=== PATIENT | female | born 1960 | race Caucasian/White ===

== ENCOUNTER 2025-03-08 12:29 | Emergency (ER) | payer OTHER, SELFPAY ==
[2025-03-08 12:40] VITALS: BP 171/89
[2025-03-08 13:06] LABS: Hematocrit 40.2 % (37.0-47.0); Hemoglobin 14.5 g/dL (12.0-16.0); Mean Corp Hgb Conc. 36.1 g/dL (33.0-37.0); Mean Corpuscular Volume 88.2 fL (81.0-99.0); Nucleated Red Blood Cells % 0 %; Platelet Count 268 10^3/uL (130-400); Red Cell Dist. Width 12.1 % (11.5-14.5)
[2025-03-08 13:30] LABS: ALT (SGPT) 25 U/L (0-35); AST (SGOT) 29 U/L (14-36); Albumin 4.8 g/dl (3.5-5.0); Alkaline Phosphatase 84 U/L (38-126); Blood Urea Nitrogen 18 mg/dl (7-17); Calcium 9.6 mg/dl (8.4-10.2); Carbon Dioxide 27 mmol/L (22-30); Chloride 106 mmol/L (98-107); Glucose 117 mg/dl (70-99); Potassium 4.1 mmol/L (3.5-5.1); Sodium 140 mmol/L (135-145); Total Protein 7.6 g/dl (6.3-8.2); eGFR > 60.00
--- NOTE | 2025-03-08 15:50 | ED.GENMED ---
History of Present Illness
General
Chief Complaint: Visual Problem
Source: patient
Time Seen by Provider: 03/08/25 15:21
History of Present Illness
History of Present Illness:
This patient is a 64-year-old female with a history of cerebral aneurysm status post repair with coil and stent, noted incidentally on her workup for tinnitus, who presents emergency department with visual changes that started around 11 AM today.
She looked at her phone and noticed that she could not read it well. She describes a circular vision in her field that was associated with 'zigzags', and this became multicolored. She said on the left side of the [place] it was kind of blurry, but
not completely blacked out. No overt amaurosis. Symptoms are fully resolved within 10 minutes and then at noon she noted a moderate headache which persists. She denies fever, chills, numbness, tingling, focal weakness, change in speech, change in
balance, double vision, recent trauma. She denies recent chiropractor visit, neck extension, etc. Patient does wear glasses. She has never had a migraine before and states it does not run in the family. The headache that she is describing is not
sudden onset or worst of life. With these visual complaints she states that she close her left eye and still noted the abnormalities, close to her right eye and noted the abnormalities even more, and when closing both eyes appreciated the
abnormalities also.
Past History
Past History
ED Past Medical History: Other (Tinnitus, cerebral aneurysm, bigeminy, hypercholesterolemia)
ED Past Surgical History: Other (Ear surgery, tonsillectomy, hysterectomy, thyroid nodule)
Social History
Tobacco: Non-smoker
Alcohol: None
Drug: None
Personal:
Living: with family
Employment: Employed
Phy Exam
Physical Exam
Physical Exam:
GENERAL: Alert , in no apparent distress
EYE: pupils equal and reactive, EOMI, no nystagmus, no photophobia, visual hinton intact, funduscopic exam grossly normal
NECK: Supple, no significant adenopathy.
ENT: o/p clr, mmm.
CARDIAC: Regular rate and rhythm .
LUNGS: Clear breath sounds bilaterally, no acute respiratory distress, no wheezes/rales/rhonchi
ABDOMEN: Soft, without focal tenderness, no r/g, no cvat
NEUROLOGICAL: Alert and oriented, no focal neuro deficits, visual hinton intact, motor 5 out of 5, sensory intact, cranial nerves II through XII intact, [id number] normal, gait normal
SKIN: Warm and dry, skin intact.
MUSCULOSKELETAL: No edema, well perfused.
PSYCH: Normal and appropriate interaction.
Course
Orders/Labs/Results
Orders:
Orders
03/08/25 12:44
CT Head W/o Iv Contrast Urgent
Comment: aneurysm with stent and coils at [place] 2020
Reason For Exam: visual disturances for 10 minutes which resolved
03/08/25 12:52
Complete Blood Count/With Diff Urgent
Comprehensive Metabolic Panel Urgent
03/08/25 16:13
Prochlorperazine [Compazine] 10 mg PO NOW ONE
Abnormal Lab Results
03/08/25
12:52
MCH 31.8 H pg
(27.0-31.0)
Absolute Monos (auto) 0.7 H 10^3/uL
(0.1-0.6)
BUN 18 H mg/dl
(7-17)
Glucose 117 H mg/dl
(70-99)
03/08/25 12:52
03/08/25 12:52
Vital Signs
Initial and Last Documented VS:
Initial Vital Signs
Temp Pulse Resp BP Pulse Ox
98.0 F 78 16 171/89 98
03/08/25 12:40 03/08/25 12:40 03/08/25 12:40 03/08/25 12:40 03/08/25 12:40
Last Documented Vital Signs
Temp Pulse Resp BP Pulse Ox
98.0 F 78 16 171/89 98
03/08/25 12:40 03/08/25 12:40 03/08/25 12:40 03/08/25 12:40 03/08/25 15:53
*Pulse Oximetry
SaO2: 98
Oxygen Mode of Delivery: Room air
Update Note
Update Note:
Patient presents to the Emergency Department with _visual changes with subsequent headache
Number and Complexity of Problems Addressed at the Encounter
� Chronic conditions affecting care:
� Acute Exacerbation and/or Progression of Chronic Illness:
� Differential Diagnosis includes: But not limited to ocular migraine, TIA, intracranial bleed, etc. etc. etc.
Amount and/or Complexity of Data to be Reviewed and Analyzed
� I performed an independent evaluation of and my interpretation is:
EKG:
CT:The ventricles and sulci are normal in size and configuration. The periventricular, subcortical, and deep white matter is unremarkable. No focal regions of hypoattenuation. There is no mass effect. There are no findings of
acute transcortical infarction. No intra or extra-axial hemorrhage. Stent and coils within the right cavernous sinus compatible with prior endovascular aneurysm repair.
The calvarium is unremarkable. The orbits are unremarkable. The paranasal sinuses and mastoid air cells are clear.
IMPRESSION:
No acute intracranial abnormality.
Xrays:
Laboratory Studies:Generally unremarkable
Other:
� Review of other/old records reveals:
� Clinical information was obtained by an independent historian:
� Prescriptions/Medications Considered but not given:
� Further testing considered but not performed:
Risk of Complications and/or Morbidity or Mortality of Patient Management
� Social determinants of health affecting care:
4:14 PM Case discussed with Dr. Justin who examined patient at bedside and agrees that signs and symptoms consistent with migraine with aura. He will recommend prochlorperazine. Patient's NIH is 0, no acute neurological symptoms at this time,
highly doubt TIA, amaurosis, CVA, bleed, etc. No further recommendations at this time. She is comfortable. H/a is minimal. (If bleed a cause of sxs, would expect tos ee on nonctx CT)
� Discussion with other providers (PCP, Hospitalists, Consultants, etc):
� Escalation of care including admission/observation vs risk of discharge considered:
ED Attending Note
-
Portions of this chart may have been created with voice recognition software.� Occasional wrong word or��sound alike� substitutions may have occurred due to the inherent limitations of voice recognition software.
Discharge Plan
Departure
Patient Disposition: Home (Routine Discharge)
Date of Disposition: 03/08/25
Time of Disposition: 16:20
Patient with high blood pressure during this ER visit?: Yes
Condition: Good
Discharge Problem:
Migraine with aura
Instructions: Headache, Adult (DC), BLOOD PRESSURE
Prescriptions:
No Action
multivitamin [Daily Vitamin] 1 EACH tablet
1 tab PO DAILY
calcium carbonate [Calcium 600] 600 MG tablet
600 mg PO DAILY
amlodipine-benazepril 1 CAPSULE capsule
1 tab PO DAILY
loratadine 10 MG tablet
10 mg PO DAILY
nebivolol [Bystolic] 10 MG tablet
10 mg PO DAILY
Referrals:
UNKNOWN - PT NOT,INTERVIEWE [Unknown Provider]
Activity Restrictions/Additional Instructions:
IF YOU DEVELOP NUMBNESS, TINGLING, FOCAL WEAKNESS, CHANGE IN SPEECH, DOUBLE VISION, RECURRENT VISUAL SYMPTOMS, CHEST PAIN, SHORTNESS OF BREATH, UNSTEADINESS, OR OTHER WORRISOME SIGNS, PLEASE RETURN TO THE ER IMMEDIATELY! YOU SHOULD SEE YOUR DOCTOR
IN CLOSE FOLLOW-UP WITHIN THE NEXT WEEK.
Interventions
Interventions:
*Risk Screen - Suicide Last Done: 03/08/25 12:40
*Neglect/Abuse Screening Last Done: 03/08/25 12:40
Discharge Date and Time
Print Language: SYRIAC
--- NOTE | 2025-03-08 15:54 | CON.NEURO ---
Neuro Assessment/Plan
Assessment
Sudden onset of visual change in bilateral eyes followed by head discomfort on the right
Most likely due to migraine with aura in a patient with a prior right sided cerebral aneurysm clipping suggested by the patient's recurrent headaches, longstanding history of headaches, presence of visual change immediately followed by headache
Plan
provide Prochlorperazine 10 mg in hopes of completely remediating the patient's symptomatology
Outpatient at home sleep study due to the patient's inability to remain asleep
Goal of normotension
Would check CT angiogram if patient has worsening numbers of headaches or does not have complete resolution of her headache in the next 24 hours due to prior history of right sided cerebral aneurysm
Will follow as needed.
Consultation
Order
Date of Consultation: 03/08/25
Requesting Provider: ED Physician
Reason for Consult: visual change with headache
Subjective/Objective
Subjective Data
Date of Service: March 08, 2025
Right-Handed
At 11:00 'I had a visual aura and then I had a headache.'
Aura lasted 5-10 minutes, then resolved
Zig-zag appearance in left side of the vision seen in both eyes, then headache.
Headache located on right side of head. Intensity of discomfort unclear currently.
Headaches usually monthly. Photophobia, phonophobia, nausea, emesis not present with usual headaches.
Headaches have been lifelong.
Tinnitus in right ear previously not changed with aneurysmal repair. 'Whooshing sound.'
Objective Data
Vital Signs
Temp Pulse Resp BP Pulse Ox
36.7 C 78 16 171/89 98
03/08/25 12:40 03/08/25 12:40 03/08/25 12:40 03/08/25 12:40 03/08/25 15:53
Lab Results
03/08/25 12:52
03/08/25 12:52
Sodium 140 mmol/L (135-145) 03/08/25 12:52
Potassium 4.1 mmol/L (3.5-5.1) 03/08/25 12:52
BUN 18 mg/dl (7-17) H 03/08/25 12:52
Glucose 117 mg/dl (70-99) H 03/08/25 12:52
Calcium 9.6 mg/dl (8.4-10.2) 03/08/25 12:52
Patient Allergies
Sulfa (Sulfonamide Antibiotics) (Sulfa (Sulfonamides)) Allergy (Intermediate, Verified 03/08/25 12:44)
Hives
Review of Systems
-
History Source: Patient
All other systems: Reviewed and negative
EENT: Hearing Loss (Right ear); Negative Swallowing Difficulty
Musculoskeletal: Negative Muscle Weakness
Neuro: Headache; Negative Dizzy or Speech Problem
Physical Exam
-
General: No Apparent Distress and Appears Stated Age
Eyes: OU Absent Papilledema, Round OU, Butternut Conjunctivae and No Ptosis
HEENT: Anicteric and Moist Mucous Membranes
Neck: Full Range of Motion
Respiratory: No Dyspnea
Cardiac: No JVD
GI: Non-distended
Skin: Unremarkable
Extremities: No Clubbing, No Cyanosis and No Edema
Psych: Negative Intact Judgement/Insight
Extended Neurological Exam
Mood & Affect: Negative Affect Unremarkable (Anxious)
Attention Span & Concentration: Awake, Alert, Interactive and No Difficulty with 2 Step Request
Memory: Unremarkable
Tremor: Hand Tremor Absent and Head Tremor Absent
Speech: Quality Unremarkable and Quantity Unremarkable
Cranial Nerve II: Left Eye: Pupillary Reactivity Unremarkable, Pupillary Size Unremarkable and Visual Moser Intact
Cranial Nerve II: Right Eye: Pupillary Reactivity Unremarkable, Pupillary Size Unremarkable and Visual Moser Intact
Cranial Nerves III, IV, : Extraocular Movement: Extraocular Movement Full in all Directions
Cranial Nerve VII: Facial Symmetry: Normal Facial Symmetry
Cranial Nerve VIII: Hearing: Unremarkable Hearing to Normal Conversational Volume
Cranial Nerves IX, X: Palate Movement: Palate Elevation Symmetric
Cranial Nerve XI: Shoulder Shrug: Unremarkable
Cranial Nerve XII: Tongue Protusion: Midline
Muscle Strength, Overall: Full Throughout
Muscle Bulk & Tone: Bulk Unremarkable and Tone Unremarkable
Pronator Drift: No Drift in Upper Extremities
Deep Tendon Reflexes: Unremarkable Throughout
Touch Sensation: Unremarkable
Coordination: Hpjfnf-[id number] Testing Unremarkable
Babinski Sign: Absent Bilaterally
Data Reviewed
-
CT Head: Report Reviewed
Labs: Report Reviewed
Reviewed with: Physician and Patient
Old Records: Summarized
Medications
-
Home Medications
�Medication �Instructions �Recorded
amlodipine 5 mg-benazepril 20 mg 1 tab PO DAILY 05/08/14
capsule
calcium carbonate (Calcium 600) 600 mg PO DAILY 05/08/14
loratadine 10 mg tablet 10 mg PO DAILY 05/08/14
multivitamin (Daily Vitamin tablet) 1 tab PO DAILY 05/08/14
nebivolol 10 mg tablet (Bystolic) 10 mg PO DAILY 05/08/14
Past History
Past History
ED Past Medical History: Other (Tinnitus, cerebral aneurysm, bigeminy, hypercholesterolemia)
ED Past Surgical History: Brain (Right cavernous sinus cerebral aneurysm repair) and Other (Ear surgery, tonsillectomy, hysterectomy, thyroid nodule)
Social History
Tobacco: Non-smoker
Alcohol: None
Drug: None
Personal:
Living: with family
Employment: Employed
Family History
Family History: Other (Reviewed and noncontributory)
[2025-03-08] MEDS: COMPAZINE 10 MG PO (16:27)
[2025-03-08 17:20] VITALS: BP 164/72
== END 2025-03-08 17:23 | disposition home or self-care (01) ==
LOC: EMR 12:29
PROVIDERS: Emergency Medicine; EMERGENCY PHYSICIAN Emergency Medicine; FAMILY PHYSICIAN Internal Medicine
DX: G43.109 Migraine with aura, not intractable, without status migrainosus (principal); E78.00 Pure hypercholesterolemia, unspecified; H93.11 Tinnitus, right ear; Z86.79 Personal history of other diseases of the circulatory system; Z88.2 Allergy status to sulfonamides
CPT/HCPCS: 99284; 70450; 80053; 85025